=== PATIENT | male | born 1955 | race African-American/Black ===

== ENCOUNTER 2016-11-22 21:47 | Emergency (ER) | payer MEDICARE ==
[2014-09-18 10:06] VITALS: BMI 30.8
[~2016-11-22 21:47] MED LIST: COLACE100 MG PO; MIRALAX17 GM PO; PRINIVIL20 MG PO
[2016-11-22 22:09] LABS: BASOPHILS 0.1 % (0.0-2.0); EOSINOPHILS 0.1 % (0-7); HEMATOCRIT 45.2 % (42.0-54.0); HEMOGLOBIN 15.4 g/dL (13.5-17.5); IMMATURE GRANULOCYTES 0.3 % (0-5); LYMPHOCYTES 12.6 % (15-50); MCH 29.6 pg (26.0-34.0); MCHC 34.1 g/dL (31.0-37.0); MCV 86.9 fL (80.0-100.0); NEUTROPHILS 82.9 % (40-80); PLATELET COUNT 365 10x3/uL (130-400); RDW 15.9 % (11.5-14.5); WBC 14.2 10x3/uL (4.8-10.8)
[2016-11-22 22:29] LABS: ALBUMIN 4.4 g/dL (3.4-5.0); ANION GAP 24.5 mmol/L (8-16); BILIRUBIN - TOTAL 0.48 mg/dL (0.2-1.3); CALCIUM 9.4 mg/dL (8.5-10.1); CARBON DIOXIDE 14.9 mmol/L (21.0-32.0); CREATININE - SERUM 1.1 mg/dL (0.6-1.3); POTASSIUM - SERUM 3.4 mmol/L (3.5-5.1); PROTEIN - SERUM 8.7 g/dL (6.4-8.2)
[2016-11-22 23:03] LABS: APPEARANCE CLEAR (CLEAR); BILIRUBIN NEGATIVE (NEGATIVE); COLOR YELLOW (YELLOW); GLUCOSE NEGATIVE (NEGATIVE); KETONE MODERATE mg/dL (NEGATIVE); LEUKOCYTE ESTERASE NEGATIVE (NEGATIVE); NITRITE NEGATIVE (NEGATIVE); PROTEIN NEGATIVE (NEGATIVE); SPECIFIC GRAVITY 1.015 (1.005-1.020); UROBILINOGEN NORMAL (NORMAL)
== END 2016-11-22 23:49 | disposition home or self-care (01) ==
LOC: D.ER 21:47
PROVIDERS: Family Medicine
DX: R10.11 Right upper quadrant pain (principal); R10.13 Epigastric pain; R11.2 Nausea with vomiting, unspecified; F17.200 Nicotine dependence, unspecified, uncomplicated; I63.9 Cerebral infarction, unspecified; R47.9 Unspecified speech disturbances; R00.0 Tachycardia, unspecified

== ENCOUNTER 2017-03-21 15:48 | Emergency (ER) | payer MEDICARE ==
[2014-09-18 10:06] VITALS: BMI 30.8
[2017-03-21 18:03] LABS: BASOPHILS 0.2 % (0-2); HEMATOCRIT 39.9 % (42.0-54.0); HEMOGLOBIN 12.9 g/dL (13.5-17.5); IMMATURE GRANULOCYTES 0.2 % (0-5); LYMPHOCYTES 16.3 % (15-50); MCH 29.3 pg (26.0-34.0); MCHC 32.3 g/dL (31.0-37.0); MCV 90.5 fL (80.0-100.0); MEAN PLATELET VOLUME 8.8 fL (7.4-10.4); MONOCYTES 8.1 % (2-11); NEUTROPHILS 74.2 % (40-80); PLATELET COUNT 350 10x3/uL (130-400); RBC 4.41 10x6/uL (4.20-6.10); RDW 16.5 % (11.5-14.5); WBC 9.2 10x3/uL (4.8-10.8)
[2017-03-21 18:08] LABS: APPEARANCE CLEAR (CLEAR); BILIRUBIN NEGATIVE (NEGATIVE); COLOR YELLOW (YELLOW); GLUCOSE NEGATIVE (NEGATIVE); KETONE NEGATIVE (NEGATIVE); LEUKOCYTE ESTERASE NEGATIVE (NEGATIVE); NITRITE NEGATIVE (NEGATIVE); PROTEIN NEGATIVE (NEGATIVE); UROBILINOGEN NORMAL (NORMAL)
[2017-03-21 18:20] LABS: ALBUMIN 4.1 g/dL (3.4-5.0); ALKALINE PHOSPHATASE 88 U/L (46-116); ALT (SGPT) 16 U/L (10-68); BILIRUBIN - TOTAL 0.51 mg/dL (0.2-1.3); CARBON DIOXIDE 27.5 mmol/L (21.0-32.0); CHLORIDE - SERUM 98 mmol/L (98-107); CREATININE - SERUM 0.8 mg/dL (0.6-1.3); GLUCOSE 111 mg/dL (74-106); POTASSIUM - SERUM 3.1 mmol/L (3.5-5.1); PROTEIN - SERUM 7.9 g/dL (6.4-8.2); UREA NITROGEN 9 mg/dL (7-18); eGFR NON AFRICAN AMERICAN > 90 mL/min (90-120)
[2017-03-21 18:30] LABS: CALC OSMOLALITY 264 mosm/kg (275-300); CALCIUM 9.5 mg/dL (8.5-10.1); SODIUM 132 mmol/L (136-145)
== END 2017-03-21 19:00 | disposition home or self-care (01) ==
LOC: D.ER 15:48
PROVIDERS: Emergency Medicine; Nurse Practitioner Family
DX: R33.9 Retention of urine, unspecified (principal); R30.0 Dysuria; Z86.73 Personal history of transient ischemic attack (TIA), and cerebral infarction without residual deficits

== ENCOUNTER → 2017-03-22 16:04 | Outpatient (CLI) | payer MEDICARE ==
[2014-09-18 10:06] VITALS: BMI 30.8
== END | disposition home or self-care (01) ==
LOC: D.LAB 16:04
DX: N40.1 Benign prostatic hyperplasia with lower urinary tract symptoms (principal)

== ENCOUNTER 2017-12-24 07:15 | Emergency (ER) | payer MEDICARE, MEDICAID ==
[2014-09-18 10:06] VITALS: BMI 30.8
[2017-12-24 08:24] LABS: ALBUMIN 4.4 g/dL (3.4-5.0); ALKALINE PHOSPHATASE 92 U/L (46-116); ALT (SGPT) 14 U/L (10-68); CALC OSMOLALITY 277 mosm/kg (275-300); CALCIUM 9.4 mg/dL (8.5-10.1); CARBON DIOXIDE 26.9 mmol/L (21.0-32.0); CHLORIDE - SERUM 102 mmol/L (98-107); GLUCOSE 111 mg/dL (74-106); POTASSIUM - SERUM 3.7 mmol/L (3.5-5.1); PROTEIN - SERUM 8.3 g/dL (6.4-8.2); SODIUM 140 mmol/L (136-145); UREA NITROGEN 8 mg/dL (7-18); eGFR NON AFRICAN AMERICAN 80 mL/min (90-120)
[2017-12-24 08:32] LABS: BASOPHILS 0.3 % (0-2); EOSINOPHILS 2.3 % (0-7); HEMOGLOBIN 14.7 g/dL (13.5-17.5); IMMATURE GRANULOCYTES 0.3 % (0-5); LYMPHOCYTES 16.4 % (15-50); MCH 29.6 pg (26.0-34.0); MCHC 32.7 g/dL (31.0-37.0); MCV 90.7 fL (80.0-100.0); MEAN PLATELET VOLUME 10.2 fL (7.4-10.4); MONOCYTES 5.2 % (2-11); NEUTROPHILS 75.5 % (40-80); PLATELET COUNT 304 10x3/uL (130-400); RBC 4.96 10x6/uL (4.20-6.10); RDW 15.1 % (11.5-14.5); WBC 9.5 10x3/uL (4.8-10.8)
[2017-12-24 08:49] LABS: APPEARANCE SLT CLOUDY (CLEAR); BACTERIA MANY /hpf (NONE SEEN); BILIRUBIN NEGATIVE (NEGATIVE); COLOR YELLOW (YELLOW); EPITHELIAL CELLS 0-5 /hpf (0-5); GLUCOSE NEGATIVE (NEGATIVE); KETONE NEGATIVE (NEGATIVE); MUCUS <1+ /lpf (NONE SEEN); NITRITE POSITIVE (NEGATIVE); PROTEIN TRACE mg/dL (NEGATIVE); UROBILINOGEN NORMAL (NORMAL)
== END 2017-12-24 10:42 | disposition home or self-care (01) ==
LOC: D.ER 07:15
PROVIDERS: Emergency Medicine
DX: N39.0 Urinary tract infection, site not specified (principal); R33.9 Retention of urine, unspecified

== ENCOUNTER 2017-12-27 09:26 | Emergency (ER) | payer MEDICARE, MEDICAID ==
[2014-09-18 10:06] VITALS: BMI 30.8
== END 2017-12-27 10:28 | disposition home or self-care (01) ==
LOC: D.ER 09:26
DX: T83.038A Leakage of other urinary catheter, initial encounter (principal)

== ENCOUNTER 2018-01-26 07:50 | Day surgery (SDC) | payer MEDICARE, MEDICAID ==
[2018-01-24 11:19] LABS: HEMATOCRIT 42.3 % (42.0-54.0); HEMOGLOBIN 13.9 g/dL (13.5-17.5); MCH 29.4 pg (26.0-34.0); MCHC 32.9 g/dL (31.0-37.0); MCV 89.4 fL (80.0-100.0); MEAN PLATELET VOLUME 9.1 fL (7.4-10.4); RBC 4.73 10x6/uL (4.20-6.10); RDW 14.7 % (11.5-14.5); WBC 7.2 10x3/uL (4.8-10.8)
[~2018-01-26] VITALS: Ht 182.9 cm; Wt 95.5 kg
--- NOTE | ~2018-01-26 | OP ---
PATIENT NAME: GOPAL VALENTINO MEDICAL RECORD: [id number] :53 LOCATION:[facility] ADMISSION DATE: SURGEON: KIRBY NIELSON MD DATE OF OPERATION: 01/26/2018 SURGEON: Kirby Nielson MD ANESTHESIA: General anesthesia by Emmanuel Richardson CRNA. DIAGNOSIS: Obstructive benign prostatic hypertrophy. PROCEDURES: Cystoscopy, GreenLight laser transurethral resection of the prostate (TURP), power use was 80-100 blanton, energy was 96,476 kilojoules, and laser on time was 17 minutes and 1 second. BLOOD LOSS: None. CLINICAL HISTORY: This is a 62-year-old male, who is a current every day smoker. He has had a stroke and cognitive impairment because of it. He has obstructive BPH. I placed him on finasteride and tamsulosin. He mixes up his medication directions and he often takes more medications than he should in a day and as a result, he runs out of medication. When he runs out of medication, he goes into urinary retention. He has had several Emergency Room visits for urinary retention and then he comes back to the office to have the Garcia catheter removed once he is on medications again. He and his are tired of the cycle and he would like to proceed to a GreenLight laser TURP. He is ALLERGIC TO PENICILLIN. We gave him Levaquin electronic assembler to the OR. DESCRIPTION OF PROCEDURE: The patient was given induction of general anesthesia. He was then placed in the dorsal lithotomy position and prepped and draped. The laser resectoscope was introduced using a visual obturator. We used a 30-degree lens. Penile urethra shows no strictures. The prostate shows obstructive lateral lobes. The bladder neck was also somewhat elevated. No bladder tumors were seen in the bladder. Bladder was mildly trabeculated and there were single ureteral orifices on each side. These ureteral orifices are at some distance away from the bladder neck. We introduced the laser fiber and the resection was maintained between the bladder neck, just proximal to the verumontanum. I initially started on the posterior wall of the prostatic urethra. We carved out a good channel down to the pseudocapsule of the adenoma. We then worked on each of the lateral lobes in turn. The resection was brought down to the apex at the point lateral to the verumontanum. The verumontanum was intact throughout the entire procedure. The resection was carried down to the pseudocapsule. No active bleeding was noted. As the tissue became desiccated from the action of the laser, we had to increase the laser energy in order to maintain good tissue removal. At the end of the procedure when the scope was held at the level of the verumontanum, there was a good channel all the way through the prostatic urethra and through the bladder neck into the bladder. The laser fiber was then removed. A Sensor wire was placed into the bladder through the scope. The scope was then removed, leaving the wire in place. A 22-Brazilian 3-way torres martinez tip Garcia catheter was then inserted into the bladder over the wire. Once the catheter was fully in the bladder, the balloon was inflated with 30 cc of sterile water. The wire was then completely removed. The inflow port of the 3-way Garcia catheter was plugged using a catheter plug. The catheter was then put to bag drainage. The patient will be going home today with the procedure with a prescription for Tylenol No. 3. I will see him in OPERATIVE REPORT [id number] GOPAL VALENTINO followup in the office in a couple of days' time in order to remove the Garcia catheter. TRANSINT:[id number] Voice Confirmation ID: [id number] DOCUMENT ID: [id number] KIRBY NIELSON MD at 1726 CC: [id number] DICTATION DATE: 01/26/18 1059 SUBWAY GUARD: 01/26/18 1309 [place] [facility] [place]18 [id number] [place] [address]
[2018-01-26] MEDS ORDERED: AMITRIPTYLINE H50 MG PO (08:57)
[2018-01-26] MEDS ORDERED: PROSCAR5 MG (08:58)
[2018-01-26] MEDS ORDERED: FLOMAX0.4 MG PO (08:58)
[2018-01-26] MEDS ORDERED: ULTRAM50 MG PO (08:58)
[2018-01-26] MEDS ORDERED: NEURONTIN 400400 MG PO (08:59)
[2018-01-26] MEDS ORDERED: ZOCOR20 MG PO (08:59)
[2018-01-26 09:02] VITALS: BP 100/70; Ht 182.9 cm; Wt 95.5 kg
== END 2018-01-26 12:40 | disposition home or self-care (01) ==
LOC: D.OPS 07:50 → D.PAN 09:45 → D.OPS 09:45 → D.PAN 11:00 → D.OPS 12:40
PROVIDERS: Anesthesiology
DX: N40.1 Benign prostatic hyperplasia with lower urinary tract symptoms (principal); N13.8 Other obstructive and reflux uropathy; R33.8 Other retention of urine; F17.200 Nicotine dependence, unspecified, uncomplicated; I69.319 Unspecified symptoms and signs involving cognitive functions following cerebral infarction; Z01.812 Encounter for preprocedural laboratory examination

== ENCOUNTER → 2018-02-09 12:12 | Outpatient (CLI) | payer MEDICARE, MEDICAID ==
[2018-01-26 09:02] VITALS: BMI 28.5
[~2018-02-09 12:12] MED LIST changes: +AMITRIPTYLINE H50 MG PO; +FLOMAX0.4 MG PO; +NEURONTIN 400400 MG PO; +PROSCAR5 MG; +ULTRAM50 MG PO; +ZOCOR20 MG PO
== END | disposition home or self-care (01) ==
LOC: D.US 12:00
DX: N50.819 Testicular pain, unspecified (principal)

== ENCOUNTER → 2018-02-09 15:01 | Outpatient (CLI) | payer MEDICARE, MEDICAID ==
[2018-01-26 09:02] VITALS: BMI 28.5
== END | disposition home or self-care (01) ==
LOC: D.LABREF 15:01
DX: N39.0 Urinary tract infection, site not specified (principal)

== ENCOUNTER 2018-02-20 10:06 | Emergency (ER) | payer MEDICARE, MEDICAID ==
[2018-01-26 09:02] VITALS: BMI 28.5
[2018-02-20 11:41] LABS: APPEARANCE SLT CLOUDY (CLEAR); BACTERIA FEW /hpf (NONE SEEN); BILIRUBIN NEGATIVE (NEGATIVE); COLOR YELLOW (YELLOW); EPITHELIAL CELLS OCC /hpf (0-5); GLUCOSE NEGATIVE (NEGATIVE); KETONE NEGATIVE (NEGATIVE); MUCUS <1+ /lpf (NONE SEEN); NITRITE NEGATIVE (NEGATIVE); PROTEIN 1+ mg/dL (NEGATIVE); RED CELLS - URINE 25-50 /hpf (0-5); UROBILINOGEN NORMAL (NORMAL); WHITE CELLS - URINE >50 /hpf (0-5)
== END 2018-02-20 15:04 | disposition home or self-care (01) ==
LOC: D.ER 10:06
PROVIDERS: Emergency Medicine
DX: N39.0 Urinary tract infection, site not specified (principal)

== ENCOUNTER → 2018-02-25 18:02 | Outpatient (CLI) | payer MEDICARE, MEDICAID ==
[2018-01-26 09:02] VITALS: BMI 28.5
== END | disposition home or self-care (01) ==
LOC: D.LABREF 18:02
DX: N39.0 Urinary tract infection, site not specified (principal)

== ENCOUNTER → 2018-03-11 18:04 | Outpatient (CLI) | payer MEDICARE, MEDICAID ==
[2018-01-26 09:02] VITALS: BMI 28.5
== END | disposition home or self-care (01) ==
LOC: D.LABREF 18:04
DX: N39.0 Urinary tract infection, site not specified (principal)

== ENCOUNTER → 2018-03-25 14:32 | Outpatient (CLI) | payer MEDICARE, MEDICAID ==
[2018-01-26 09:02] VITALS: BMI 28.5
== END | disposition home or self-care (01) ==
LOC: D.LABREF 14:32
DX: N39.0 Urinary tract infection, site not specified (principal)